=== PATIENT | male | born 1985 | race Caucasian/White ===

== ENCOUNTER 2022-08-13 12:50 | Outpatient (CLI) | payer OTHER, SELFPAY | END 2022-08-13 12:51 | disposition home or self-care (01) | LOC: ANHAUDASC 12:51 | PROVIDERS: PCP Family Medicine Adolescent Medicine; Visit Provider Otolaryngology | DX: H92.01 Otalgia, right ear (principal); H69.81 Other specified disorders of Eustachian tube, right ear; H93.11 Tinnitus, right ear; H90.3 Sensorineural hearing loss, bilateral | CPT/HCPCS: 92557; 92567 ==

== ENCOUNTER → 2023-06-26 15:58 | Outpatient (CLI) | payer OTHER, SELFPAY ==
--- NOTE | ~2023-06-26 | XR_ITS ---
XR lumbar spine 2-3V 06/26/2023 16:14 Indication: Low back pain Procedure: 3 views lumbar spine Comparison: No prior studies for comparison. Findings: Vertebral body heights are maintained. No fracture, subluxation or dislocation. No evidence for spondylolysis or spondylolisthesis. There is mild disc narrowing at L5-S1. Pedicles intact. Sacr al foramen are symmetric. Impression: 1: Mild lumbar spondylosis. Reviewed, dictated and finalized at location L. Impression: 1: Mild lumbar spondylosis.
== END ==
PROVIDERS: PCP Family Medicine Adolescent Medicine; Visit Provider Nurse Practitioner Family
DX: M43.06 Spondylolysis, lumbar region (principal)
CPT/HCPCS: 72100

== ENCOUNTER → 2023-07-05 09:02 | Outpatient (CLI) | payer OTHER, SELFPAY ==
--- NOTE | ~2023-07-05 | MR_ITS ---
EXAMINATION: MR cervical spine wo con DATE: 07/05/2023 10:22 INDICATION: Left leg numbness and tingling. Abnormal reflex. TECHNIQUE: Magnetic resonance imaging (MRI) of the cervical spine was performed without intravenous c ontrast. COMPARISON: None. FINDINGS: Bone alignment is normal. Vertebral body heights are normal. Intervertebral disc heights ar e normal. The spinal cord signal intensity is normal. The following disc levels are specifically disc ussed: C2-C3: The disc does not extend beyond the endplate margin. There is no uncovertebral joint osteoarth ritis. There is mild bilateral facet joint osteoarthritis. There is no neural foraminal stenosis. The re is no central canal stenosis. C3-C4: The disc does not extend beyond the endplate margin. There is moderate right and mild left unc overtebral joint osteoarthritis. There is no facet joint osteoarthritis. There is mild right neural f oraminal stenosis. There is no central canal stenosis. C4-C5: The disc does not extend beyond the endplate margin. There is mild bilateral uncovertebral efraín nt osteoarthritis. There is mild right facet joint osteoarthritis. There is mild right neural foramin al stenosis. There is no central canal stenosis. C5-C6: The disc does not extend beyond the endplate margins. There is mild right and moderate left un covertebral joint osteoarthritis. There is no facet joint osteoarthritis. There is mild left neural f oraminal stenosis. There is no central canal stenosis. C6-C7: The disc does not extend beyond the endplate margin. There is mild bilateral uncovertebral efraín nt osteoarthritis. There is mild bilateral facet joint osteoarthritis. There is no neural foraminal s tenosis. There is no central canal stenosis. C7-T1: The disc does not extend beyond the endplate margin. There is no uncovertebral joint osteoarth ritis. There is mild bilateral facet joint osteoarthritis. There is no neural foraminal stenosis. The re is no central canal stenosis. IMPRESSION: 1. Mild cervical spondylosis. Reviewed, dictated and finalized at location E.
--- NOTE | ~2023-07-05 | MR_ITS ---
EXAMINATION: MR thoracic spine wo con DATE: 07/05/2023 10:22 INDICATION: Abnormal reflex. TECHNIQUE: Magnetic resonance imaging (MRI) of the thoracic spine was performed without intravenous c ontrast. COMPARISON: None FINDINGS: Bone alignment is normal. Vertebral body heights are normal. There is mildly decreased disc height from T5-T6 through T9-T10. At T5-T6, there is a central protrusion with mild central canal st enosis and ventral indentation of the spinal cord. At T8-T9, there is a right central protrusion with mild central canal stenosis. At T9-T10, there is a right central protrusion with annular fissure and mild central canal stenosis. There is multilevel mild facet joint osteoarthritis. No neural foramina l stenosis. The spinal cord signal intensity is normal. IMPRESSION: 1. Mild thoracic spondylosis. Reviewed, dictated and finalized at location E.
--- NOTE | ~2023-07-05 | MR_ITS ---
EXAMINATION: MR lumbar spine wo con DATE: 07/05/2023 10:22 INDICATION: Abnormal reflex. TECHNIQUE: Magnetic resonance imaging (MRI) of the lumbar spine was performed without intravenous con trast. Sequences included sagittal T2-weighted FSE, sagittal T2-weighted FS FSE, sagittal T1-weighted FSE, and axial T2-weighted FSE. COMPARISON: Lumbar spine radiographs 06/26/2023 FINDINGS: Bone alignment is normal. Vertebral body heights and intervertebral disc heights are normal . The distal spinal cord signal intensity is normal. The conus medullaris is at L1. The following dis c levels are specifically discussed: L1-L2: The disc does not extend beyond the endplate margin. There is no facet joint osteoarthritis. T here is no neural foraminal stenosis. There is no central canal stenosis. L2-L3: The disc does not extend beyond the endplate margin. There is no facet joint osteoarthritis. T here is no neural foraminal stenosis. There is no central canal stenosis. L3-L4: There is a left foraminal protrusion with annular fissure. There is mild bilateral facet joint osteoarthritis. There is mild left neural foraminal stenosis. There is no central canal stenosis. L4-L5: There is a right foraminal protrusion with annular fissure. There is mild bilateral facet join t osteoarthritis. There is mild right neural foraminal stenosis. There is no central canal stenosis. L5-S1: The disc does not extend beyond the endplate margin. There is mild bilateral facet joint osteo arthritis. There is no neural foraminal stenosis. There is no central canal stenosis. IMPRESSION: 1. Mild lumbar spondylosis. Reviewed, dictated and finalized at location E. IMPRESSION: 1. Mild lumbar spondylosis.
== END ==
PROVIDERS: PCP Family Medicine Adolescent Medicine; Visit Provider Nurse Practitioner Family
DX: R29.2 Abnormal reflex (principal); R25.3 Fasciculation; M47.894 Other spondylosis, thoracic region; M47.896 Other spondylosis, lumbar region; M47.892 Other spondylosis, cervical region
CPT/HCPCS: 72141; 72146; 72148